=== PATIENT | male | born 1950 | race African-American/Black ===

== ENCOUNTER 2018-09-29 08:55 | Emergency (ER) | payer OTHER ==
[~2018-09-29] VITALS: Ht 175.3 cm; Wt 95.3 kg
[2018-09-29] MEDS ORDERED: IV NORMAL SALINE 500ML BAG 500 ML IV ONE (10:00)
[2018-09-29 10:09] LABS: BASO # 0.1 x10^3/uL (0.0-0.2); BASO % 1 % (0-3); EOS % 0 % (0-3); HEMATOCRIT 44.2 % (39.0-53.0); LYMPH # 0.7 x10^3/uL (1.0-4.8); LYMPH % 12 % (24-48); MEAN CORPUSCULAR HEMOGLOBIN 23 pg (25-35); MEAN CORPUSCULAR HGB CONC 29 g/dL (31-37); MEAN CORPUSCULAR VOLUME 78 fL (79-100); MONO # 0.1 x10^3/uL (0.0-1.1); MONO % 2 % (0-9); NEUT # 4.6 x10^3uL (1.8-7.7); NEUT % 84 % (31-73); PLATELET COUNT 77 x10^3/uL (140-400); RED BLOOD COUNT 5.64 x10^6/uL (4.30-5.70); RED CELL DISTRIBUTION WIDTH 27.9 % (11.5-14.5); WHITE BLOOD COUNT 5.4 x10^3/uL (4.0-11.0)
[2018-09-29 10:21] LABS: CREATININE 1.1 mg/dL (0.7-1.3); GFR 66.2
[2018-09-29 10:26] LABS: ALBUMIN/GLOBULIN RATIO 1.2 (1.0-1.7); TOTAL BILIRUBIN 0.7 mg/dL (0.2-1.0); TOTAL PROTEIN 7.4 g/dL (6.4-8.2)
--- NOTE | 2018-09-29 10:28 | RAD ---
EXAM: CHEST 1 VIEW History: Chest pain COMPARISON: None available. TECHNIQUE: Single portable radiograph of the chest FINDINGS: The cardiac silhouette is unremarkable. The lungs are clear bilaterally. The costophrenic sulci are clear and well demarcated. IMPRESSION: No radiographic evidence of an acute cardiopulmonary process. Electronically signed by: Jose Henry MD (09/29/2018 10:25 AM) [id number]
--- NOTE | 2018-09-29 10:33 | PHYS DOC ---
Past Medical History Past Medical History: High Cholesterol, Hypertension Additional Past Medical Histor: GOUT, CHRONIC LEUKEMIA, POLYCYTHEMIA Past Surgical History: Cholecystectomy Additional Past Surgical Histo: HERNIA Alcohol Use: None Drug Use: None Adult General Chief Complaint Chief Complaint: SYNCOPE HPI HPI Patient is a 68 year old male who presents with presyncopal episode. He reports that at 0400 he got up to urinate, returned to bed, laid his head down and was immediately dizzy and experienced a spinning sensation of the characters on his television. He reports that at 0530 he vomited water and had a bowel movement and became lightheaded. He reports transient double vision for less than a minute that resolved on its own., cold/chills. He reports urinating once per hour, which is not entirely unusual for him. He reports increased cough and congestion with mucus production for the last week, which he attributes to his allergies. He reports he ingests lots of salt. He is feeling better and lessened lightheadedness at the ER. He denies CP, SOB, LOC, fever and diarrhea. 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 Review of Systems Review of Systems Constitutional: Denies fever, reports chills. [] Eyes: Denies change in visual acuity, or eye pain. Reports acutely red eyes [] HENT: Reports congestion with mucus production [] Respiratory: Reports cough, denies shortness of breath [] Cardiovascular: Reports history of murmur[] GI: Denies abdominal pain, bloody stools or diarrhea. Reports one episode of nausea and vomiting this AM [] : Denies dysuria or hematuria [] Musculoskeletal: Denies back pain or joint pain [] Integument: Denies rash or skin lesions [] Neurologic: Denies headache, focal weakness or sensory changes [] Endocrine: Reports polyuria [] All other systems were reviewed and found to be within normal limits, except as documented in this note. Current Medications Current Medications Current Medications Medications (Trade) Dose Ordered Sig/Emeka Start Time Stop Time Status Last Admin Dose Admin Sodium Chloride 500 ml @ 500 mls/hr 1X ONCE 09/29/18 10:00 09/29/18 10:59 DC 09/29/18 10:00 500 MLS/HR Allergies Allergies Allergies Coded Allergies Type Severity Reaction Last Updated Verified No Known Drug Allergies 09/29/18 No Physical Exam Physical Exam Constitutional: Well developed, well nourished, no acute distress, non-toxic appearance. [] HENT: Normocephalic, atraumatic, bilateral external ears normal, oropharynx moist, no oral exudates, nose normal. [] Eyes: PERRLA, EOMI, conjunctiva appear red and irritated no discharge. Right horizontal nystagmus [] Neck: Normal range of motion, no tenderness, supple, no stridor. [] Cardiovascular: irregular rhythm with 2/6 systolic murmur [] Lungs & Thorax: Bilateral breath sounds clear to auscultation [] Abdomen: Bowel sounds normal, soft, no tenderness, no masses, no pulsatile masses. [] Skin: Warm, dry, no erythema, no rash. [] Neurologic: CN2-11 intact, negative cerebellar exam, alert and oriented X 3, normal motor function, normal sensory function, no focal deficits noted. [] fnf intact, hts intact. fatiguable horizontal nystagmus when looking to the right. Psychologic: Current Patient Data Vital Signs Vital Signs Date Time Temp Pulse Resp B/P (MAP) Pulse Ox O2 Delivery O2 Flow Rate FiO2 09/29/18 11:30 78 185/91 (122) 99 Room Air 09/29/18 09:00 98.2 16 98.2 Lab Values Laboratory Tests Test 09/29/18 09:15 09/29/18 11:00 White Blood Count 5.4 x10^3/uL (4.0-11.0) Red Blood Count 5.64 x10^6/uL (4.30-5.70) Hemoglobin 13.0 g/dL (13.0-17.5) Hematocrit 44.2 % (39.0-53.0) Mean Corpuscular Volume 78 fL (79-100) L Mean Corpuscular Hemoglobin 23 pg (25-35) L Mean Corpuscular Hemoglobin Concent 29 g/dL (31-37) L Red Cell Distribution Width 27.9 % (11.5-14.5) H Platelet Count 77 x10^3/uL (140-400) L Neutrophils (%) (Auto) 84 % (31-73) H Lymphocytes (%) (Auto) 12 % (24-48) L Monocytes (%) (Auto) 2 % (0-9) Eosinophils (%) (Auto) 0 % (0-3) Basophils (%) (Auto) 1 % (0-3) Neutrophils # (Auto) 4.6 x10^3uL (1.8-7.7) Lymphocytes # (Auto) 0.7 x10^3/uL (1.0-4.8) L Monocytes # (Auto) 0.1 x10^3/uL (0.0-1.1) Eosinophils # (Auto) 0.0 x10^3/uL (0.0-0.7) Basophils # (Auto) 0.1 x10^3/uL (0.0-0.2) Segmented Neutrophils % 80 % (35-66) H Band Neutrophils % 1 % (0-9) Lymphocytes % 13 % (24-48) L Monocytes % 1 % (0-10) Basophils % 5 % (0-3) H Platelet Estimate Decreased (ADEQUATE) Large Platelets Present Hypochromasia Slight Poikilocytosis Present Anisocytosis Mod Target Cells Present Sodium Level 142 mmol/L (136-145) Potassium Level 4.0 mmol/L (3.5-5.1) Chloride Level 105 mmol/L (98-107) Carbon Dioxide Level 26 mmol/L (21-32) Anion Gap 11 (6-14) Blood Urea Nitrogen 8 mg/dL (8-26) Creatinine 1.1 mg/dL (0.7-1.3) Estimated GFR (Cockcroft-Gault) 66.2 BUN/Creatinine Ratio 7 (6-20) Glucose Level 99 mg/dL (70-99) Calcium Level 9.0 mg/dL (8.5-10.1) Total Bilirubin 0.7 mg/dL (0.2-1.0) Aspartate Amino Transferase (AST) 24 U/L (15-37) Alanine Aminotransferase (ALT) 15 U/L (16-63) L Alkaline Phosphatase 79 U/L (46-116) Troponin I Quantitative < 0.017 ng/mL (0.000-0.055) XR-Ggw-L-Type Natriuretic Peptide 139 pg/mL (0-124) H Total Protein 7.4 g/dL (6.4-8.2) Albumin 4.0 g/dL (3.4-5.0) Albumin/Globulin Ratio 1.2 (1.0-1.7) Urine Collection Type Unknown Urine Color Yellow Urine Clarity Clear Urine pH 5.5 Urine Specific [place] 1.015 Urine Protein 30 mg/dL (NEG-TRACE) Urine Glucose (UA) Negative mg/dL (NEG) Urine Ketones (Stick) Negative mg/dL (NEG) Urine Blood Trace (NEG) Urine Nitrite Negative (NEG) Urine Bilirubin Negative (NEG) Urine Urobilinogen Dipstick 1.0 mg/dL (0.2 mg/dL) Urine Leukocyte Esterase Negative (NEG) Urine RBC Occ /HPF (0-2) Urine WBC Occ /HPF (0-4) Urine Squamous Epithelial Cells Few /LPF Urine Bacteria Few /HPF (0-FEW) Urine Mucus Marked /LPF Laboratory Tests 09/29/18 09:15 Laboratory Tests 09/29/18 09:15 EKG EKG EKG shows a normal sinus rhythm rate of 77 no acute ischemic changes noted interpreted by me the time of encounter. Radiology/Procedures Radiology/Procedures [] Impressions: FINDINGS: The cardiac silhouette is unremarkable. The lungs are clear bilaterally. The costophrenic sulci are clear and well demarcated. IMPRESSION: No radiographic evidence of an acute cardiopulmonary process. Electronically signed by: Jose Henry MD (09/29/2018 10:25 AM) [id number] DICTATED and SIGNED BY: JOSE HENRY MD DATE: 09/29/18 1025 Course & Med Decision Making Course & Med Decision Making Pertinent Labs and Imaging studies reviewed. (See chart for details) Differential includes: []5-year-old male with a history of polycythemia and CML hypertension [facility] presenting with an episode of what sounds most like probably vertigo apparently the patient had some room spinning when he laid down with his head in a certain direction on the bed currently he is feeling better he never had chest pain EKG and troponin are negative after 5 hours of symptoms he is actually feeling a lot better in the emergency room after the above treatment. No signs of any central vertigo on neurologic examination he is awake and alert. He did have elevated blood pressure but that was slowly improving After observation here the patient was feeling much better no signs of obvious infection I think at this point time a safe for discharge home he was given good return precautions and is aware of the plan. Dragon Disclaimer Dragon Disclaimer This electronic medical record was generated, in whole or in part, using a voice recognition dictation system. Departure Departure Impression: Primary Impression: Dizziness Disposition: 01 HOME, SELF-CARE Condition: STABLE APRIL CISNEROS MD Sep 29, 2018 10:33
[2018-09-29 11:23] LABS: BILIRUBIN,URINE NEGATIVE (NEG); CLARITY,URINE CLEAR; COLOR,URINE YELLOW; NITRITE,URINE NEGATIVE (NEG); PH,URINE 5.5; PROTEIN,URINE 30 mg/dL (NEG-TRACE)
[2018-09-29 11:30] VITALS: BP 185/91
[2018-09-29 11:38] LABS: BACTERIA,URINE FEW /HPF (0-FEW); RBC,URINE OCC /HPF (0-2); SQUAMOUS EPITHELIAL CELL,UR FEW /LPF; WBC,URINE OCC /HPF (0-4)
--- NOTE | 2018-09-29 12:06 | EKG ---
[facility] [address] [place] [address] Test Date: 2018-09-29 Test Time: 09:17:19 Pat Name: CHARITO MARTINEZ Department: Room: Gender: M Electronic Operator: : [id number] Requested By: APRIL CISNEROS Order Number: [id number] Reading MD: Henry Mesa MD Measurements Intervals [place] Rate: 77 P: 54 TN: 178 QRS: -18 QRSD: 64 T: -6 QT: 378 QTc: 430 Interpretive Statements SINUS RHYTHM VENTRICULAR PREMATURE COMPLEX(ES) Electronically Signed On 09-29-2018 15:07:16 CDT by Henry Mesa MD
[2018-09-29 12:52] LABS: % BANDS 1 % (0-9); % BASOS 5 % (0-3); % LYMPHS 13 % (24-48); % MONOS 1 % (0-10); % SEGS 80 % (35-66)
[2018-09-29 12:53] LABS: ANISOCYTOSIS MOD; HYPOCHROMIA SLIGHT; PLT ESTIMATE DECREASED (ADEQUATE)
[2018-09-29 12:54] LABS: POIKILOCYTOSIS PRESENT; TARGET CELLS PRESENT
== END 2018-09-29 11:57 | disposition home or self-care (01) ==
LOC: ER 08:55
DX: R42 Dizziness and giddiness (principal); R05 Cough; R09.81 Nasal congestion; E78.00 Pure hypercholesterolemia, unspecified; I10 Essential (primary) hypertension; Z90.49 Acquired absence of other specified parts of digestive tract
CPT/HCPCS: 36415; 71045; 80053; 81001; 83880; 84484; 85007; 85025; 93005; 96360; 96361; 99284; J7040